=== PATIENT | male | born 1990 | race Caucasian/White ===

== ENCOUNTER 2022-09-22 11:37 | Inpatient (IN) | payer OTHER ==
[~2022-09-22] VITALS: Ht 182.9 cm; Wt 120.2 kg
[2022-09-22 11:47] VITALS: BP_SYST 138
[2022-09-22 12:19] LABS: BILIRUBIN,URINE NEGATIVE (NEGATIVE); BLOOD, URINE NEGATIVE (NEGATIVE); CLARITY/URINE CLEAR (CLEAR); COLOR,URINE YELLOW (YELLOW); GLUCOSE,URINE NEGATIVE (NEGATIVE); KETONES,URINE NEGATIVE (NEGATIVE); LEUKOCYTE ESTERASE ,URINE NEGATIVE (NEGATIVE); NITRITE, URINE NEGATIVE (NEGATIVE); PROTEIN URINE NEGATIVE (NEGATIVE)
[2022-09-22] MEDS ORDERED: MORPHINE 2 MG/ML INJ. SYRINGE IV ONE (12:30)
[2022-09-22] MEDS ORDERED: NACL 0.9% 1,000 ML IV ONE (12:30)
[2022-09-22 12:46] LABS: BASOPHILS # (AUTO) 0.1 K/uL (0.0-0.2); BASOPHILS % (AUTO) 0.6 % (0.0-2.0); EOSINOPHILS # (AUTO) 0.3 K/uL (0.0-0.4); EOSINOPHILS % (AUTO) 3.1 % (0.0-4.0); HEMATOCRIT 41.6 % (36-54); HEMOGLOBIN 14.3 g/dL (14.0-18.0); LYMPHOCYTES # (AUTO) 3.2 K/uL (1.0-5.5); LYMPHOCYTES % (AUTO) 33.4 % (20.5-51.5); MEAN CORPUSCULAR HEMOGLOBIN 30 pg (27-31); MEAN CORPUSCULAR HGB CONC 34 % (32-36); MEAN CORPUSCULAR VOLUME 87 fL (79.0-98.0); MONOCYTES # (AUTO) 0.7 K/uL (0.0-1.0); MONOCYTES % (AUTO) 7.3 % (1.7-9.3); NEUTROPHILS # (AUTO) 5.4 K/uL (1.8-7.7); NEUTROPHILS % (AUTO) 55.6 % (40.0-70.0); PLATELET COUNT (AUTO) 269 K/uL (130-430); RED BLOOD CELL COUNT(AUTO) 4.76 MIL/uL (4.2-6.2); WHITE BLOOD COUNT (AUTO) 9.7 K/uL (4.8-10.8)
[2022-09-22 13:09] LABS: CALCIUM 8.6 mg/dL (8.4-11.0); CREATININE 1.14 mg/dL (0.55-1.30)
[2022-09-22 13:13] LABS: ALBUMIN 3.8 g/dL (3.4-4.8); TOTAL BILIRUBIN 0.4 mg/dL (0.0-1.0)
[2022-09-22] MEDS ORDERED: LORazepam 2 MG/ML VIAL IVP PRN (14:15)
[2022-09-22] MEDS ORDERED: ONDANSETRON HCL 4 MG/2 ML VIAL IVP PRN (14:15)
[2022-09-22] MEDS ORDERED: NALOXONE HCL 0.4 MG/ML AMP (NARCAN) IVP PRN (14:15)
[2022-09-22] MEDS ORDERED: MORPHINE 4 MG INJ. 4 MG/ML VIAL IVP PRN (14:15)
[2022-09-22] MEDS ORDERED: MORPHINE 2 MG/ML INJ. SYRINGE IVP PRN (14:15)
[2022-09-22] MEDS: D5/0.45 NS 1,000 ML IV SCH (14:22)
[2022-09-22 17:01] VITALS: BP_SYST 125
[2022-09-22 20:00] VITALS: BP_SYST 112; BP_SYST 115
[2022-09-23] MEDS: D5/0.45 NS 1,000 ML IV SCH (00:12)
[2022-09-23 06:03] LABS: BASOPHILS # (AUTO) 0.1 K/uL (0.0-0.2); BASOPHILS % (AUTO) 0.8 % (0.0-2.0); EOSINOPHILS # (AUTO) 0.4 K/uL (0.0-0.4); EOSINOPHILS % (AUTO) 4.3 % (0.0-4.0); HEMATOCRIT 38.9 % (36-54); LYMPHOCYTES # (AUTO) 3.2 K/uL (1.0-5.5); LYMPHOCYTES % (AUTO) 38.6 % (20.5-51.5); MEAN CORPUSCULAR HEMOGLOBIN 30 pg (27-31); MEAN CORPUSCULAR HGB CONC 34 % (32-36); MEAN CORPUSCULAR VOLUME 88 fL (79.0-98.0); MONOCYTES # (AUTO) 0.6 K/uL (0.0-1.0); MONOCYTES % (AUTO) 6.7 % (1.7-9.3); NEUTROPHILS # (AUTO) 4.1 K/uL (1.8-7.7); NEUTROPHILS % (AUTO) 49.6 % (40.0-70.0); PLATELET COUNT (AUTO) 227 K/uL (130-430); RED BLOOD CELL COUNT(AUTO) 4.42 MIL/uL (4.2-6.2); WHITE BLOOD COUNT (AUTO) 8.3 K/uL (4.8-10.8)
[2022-09-23 06:11] VITALS: BP_SYST 127
[2022-09-23 06:42] LABS: ALBUMIN 3.3 g/dL (3.4-4.8); CALCIUM 8.2 mg/dL (8.4-11.0); CREATININE 1.02 mg/dL (0.55-1.30); TOTAL BILIRUBIN 0.5 mg/dL (0.0-1.0)
[2022-09-23 07:29] LABS: PROTHROMBIN TIME 10.7 SECS (9.5-12.5)
[2022-09-23 08:00] VITALS: BP_SYST 125
[2022-09-23] MEDS ORDERED: ROCURONIUM BROMIDE 10 MG/ML (ZEMURON) ONE (11:40)
[2022-09-23] MEDS ORDERED: SEVOFLURANE 15 MIN GAS INH ONE (11:40)
[2022-09-23] MEDS ORDERED: NS IRRIG SOLN 1000 ML IR ONE (11:40)
[2022-09-23] MEDS ORDERED: DEXAMETHASONE SOD PHOSPHATE 4 MG/ML VIAL ONE (11:40)
[2022-09-23] MEDS ORDERED: MEPERIDINE 50 MG/ML VIAL ONE (11:40)
[2022-09-23] MEDS ORDERED: NS 1000 ML IV.SOLN IV ONE (11:40)
[2022-09-23] MEDS ORDERED: BUPIVACAINE /PF 0.25% 30 ML VIAL INJ ONE (11:40)
[2022-09-23] MEDS ORDERED: PROPOFOL 200MG/ 20ML VIAL (DIPRIVAN) IV ONE (11:40)
[2022-09-23] MEDS ORDERED: SUCCINYLCHOLINE CHLORIDE 20 MG/ML(QUELICIN) ONE (11:40)
[2022-09-23] MEDS ORDERED: LIDOCAINE/EPI 1% 1:100000 20 ML VIAL ONE (11:40)
[2022-09-23] MEDS ORDERED: SUGAMMADEX SODIUM 200 MG/2 ML VIAL IV ONE (11:40)
[2022-09-23] MEDS ORDERED: HYDROcodone/ACETAMIN 5-325 MG TAB (NORCO/ VICODIN) PO PRN (11:45)
[2022-09-23] MEDS ORDERED: HYDROmorphone 1 MG/ML INJ. CARTRIDGE IM PRN (11:45)
[2022-09-23] MEDS ORDERED: MEPERIDINE HCL/PF 25 MG/ML DISP.SYRIN IVP PRN (12:45)
[2022-09-23] MEDS ORDERED: ONDANSETRON HCL 4 MG/2 ML VIAL IVP PRN (12:45)
[2022-09-23] MEDS ORDERED: LR 1,000 ML IV SCH (12:45)
[2022-09-23] MEDS ORDERED: KETOROLAC TROMETHAMINE 30 MG VIAL IVP PRN (12:45)
[2022-09-23] MEDS ORDERED: METOCLOPRAMIDE HCL 10 MG/2 ML VIAL IVP PRN (12:45)
[2022-09-23] MEDS ORDERED: HYDROmorphone 1 MG/ML INJ. CARTRIDGE IVP PRN (12:45)
[2022-09-23 13:15] VITALS: BP_SYST 117
== END 2022-09-23 17:30 | disposition left against medical advice (07) | DRG 419 ==
LOC: SED 11:37 → SMU 13:49
PROVIDERS: ADMIT Preventive Medicine Preventive Medicine/Occupational Environmental Medicine; ATTEND Specialist
PROC: BF131ZZ Fluoroscopy of Gallbladder and Bile Ducts using Low Osmolar Contrast (ICD-10-PCS; 2022-09-23)
PROC: 0FT44ZZ Resection of Gallbladder, Percutaneous Endoscopic Approach (ICD-10-PCS; principal; 2022-09-23 11:42)
DX: K80.40 Calculus of bile duct with cholecystitis, unspecified, without obstruction (principal); R73.9 Hyperglycemia, unspecified; Z20.822 Contact with and (suspected) exposure to COVID-19; E66.9 Obesity, unspecified; Z90.49 Acquired absence of other specified parts of digestive tract; Z68.35 Body mass index [BMI] 35.0-35.9, adult
CPT/HCPCS: 36415; 71045; 76000; 76700-TC; 80053; 81003; 82150; 83690; 85025; 85610-TC; 85730-TC; 87081; 88304; 93005; 96361; 96374; 99285; J0330; J1100; J2175; J2270; J2704; J3490; J7030; Q9967